=== PATIENT | female | born 1995 | race Caucasian/White ===

== ENCOUNTER 2018-06-06 14:59 | Inpatient (IN) | payer OTHER ==
[~2018-06-06] VITALS: Ht 165.1 cm; Wt 52.6 kg
--- NOTE | 2018-06-06 16:40 | NUR ---
pre-assessment note: pt was seen in intake office, pt is severely intoxicated, pt verbalized she used prior to admitting, she is able to provide accurate information. V/S WNL. explained protocols and procedures and pt verbalized understanding.
[2018-06-06] MEDS ORDERED: QUET200T PO (17:33)
[2018-06-06] MEDS ORDERED: CLON0.1T PO (17:34)
[2018-06-06] MEDS ORDERED: INSU100V (17:35)
[2018-06-06] MEDS ORDERED: GABA800T2 PO (17:38)
[2018-06-06] MEDS ORDERED: ESCI20TA PO (17:41)
[2018-06-06 17:48] LABS: *URINE HCG, QUAL NEGATIVE (NEGATIVE)
[2018-06-06 17:53] LABS: *AMPHETAMINE, URINE NEGATIVE (NEGATIVE); *BARBITURATE, URINE NEGATIVE (NEGATIVE); *CANNABINOID, URINE NEGATIVE (NEGATIVE); *COCCAINE, URINE NEGATIVE (NEGATIVE); *OPIATE, URINE POSITIVE (NEGATIVE); *PHENCYCLIDINE SCREEN,URINE NEGATIVE (NEGATIVE)
[2018-06-06] MEDS ORDERED: ONDANSETRON ODT 4 MG TAB.RAPDIS SL PRN (18:00)
[2018-06-06] MEDS ORDERED: LORAZEPAM 2 MG/1 ML VIAL IM PRN (18:00)
[2018-06-06] MEDS ORDERED: ACETAMINOPHEN 325 MG TABLET PO PRN (18:00)
[2018-06-06] MEDS ORDERED: diphenhydrAMINE 50 MG CAPSULE PO PRN (18:00)
[2018-06-06] MEDS ORDERED: MAG HYDROX/AL HYDROX/SIMETH 30 ML LIQUID UDC PO PRN (18:00)
[2018-06-06] MEDS ORDERED: THIAMINE HCL 200 MG/2 ML VIAL IM ONE (18:00)
[2018-06-06] MEDS ORDERED: LOPERAMIDE HCL 2 MG CAPSULE PO PRN ×2 (18:00)
[2018-06-06] MEDS ORDERED: CLONIDINE HCL 0.1 MG TABLET PO PRN ×2 (18:00→18:30)
[2018-06-06] MEDS ORDERED: ONDANSETRON 4 MG/2 ML VIAL IM PRN (18:00)
[2018-06-06] MEDS ORDERED: DIAZEPAM 5 MG TABLET PO PRN (18:00)
[2018-06-06] MEDS ORDERED: DIAZEPAM 10 MG TABLET PO PRN ×2 (18:00)
[2018-06-06] MEDS ORDERED: IBUPROFEN 400 MG TABLET PO PRN (18:00)
[2018-06-06] MEDS ORDERED: BUPRENORPHINE HCL 2 MG TAB.SUBL SL PRN (18:00)
[2018-06-06] MEDS ORDERED: DICYCLOMINE HCL 20 MG TABLET PO PRN (18:00)
[2018-06-06] MEDS ORDERED: MAGNESIUM HYDROXIDE 30 ML LIQUID UDC PO PRN (18:00)
[2018-06-06] MEDS ORDERED: HYDROXYZINE PAMOATE 25 MG CAPSULE PO PRN (18:00)
[2018-06-06] MEDS ORDERED: Medication Not On Formulary EA (Gabapentin 800 MG) PO PRN (18:30)
[2018-06-06] MEDS ORDERED: PATIENT MAY USE OWN MED- MD OK PO SCH (18:30)
[2018-06-06] MEDS ORDERED: GABAPENTIN 400 MG CAPSULE PO PRN (18:45)
[2018-06-06] MEDS ORDERED: PATIENT MAY USE OWN MED- MD OK SQ SCH (18:45)
--- NOTE | 2018-06-06 18:58 | NUR ---
ADMSSION NOTE Pt is a 22yr old female, AA&Ox4. Pt is presenting herself to [facility] for medically supervised withdrawal from Xanax and Heroin. Pt is observed intoxicated, nodding in and out and unable to keep her eyes open. Pt states her last use was today 06/06/18 at 1430, she states of using Xanax 3mg PO and smoked 0.3g of heroin. Pt is also observed with delayed speech and delayed thought process. Pt arrived on the unit at 1713. Body check was completed. Pt was noted with self inflicted scars on right upper thigh and has a personal Insulin pump on right lower quadrant. Skin is intact, warm and dry to touch. Respirations are even and unlabored. Lung sounds are clear bilaterally. Pt reports of medical history of Diabetes type 1, Hepatitis C, Anxiety, Depression, and right ear infection. Pt states of having suicide thought 2 weeks ago but denies any plan or attempt. Pt denies any Hx of seizures or 5150. Pt does states of overdosing 5 times in the past; last over dose was 1-2 years ago. Pt states she did received medical care. Pt brought home medication including Gabapentin and Clonidine for anxiety, Seroquel for sleep and Lexapro for depression. Pt denies any PCP or Psychiatrist. Substance History is as follows: 1. Xanax Pt states of first using Xanax intermittently at the age of 14-15 years old but became a daily basis at the age of [age] years old. Pt was verbalizing she was in sober living and was going to [facility] for the past 1.5 months but relapsed on Wednesday06/01/18. Pt states on taking 2mg PO daily for 6 days. Last use was today 06/06/18, pt states of taking 3mg PO at 1430. 2. Heroin Pt states of first using heroin at the age of [age] years old and was using IV daily. Pt states she was sober for 1.5months but relapsed on Wednesday06/01/18. Pt states of smoking 0.3g of heroin on Wednesday06/01/18, Wednesday06/04/18, Wednesday06/05/18 and last use was today 06/06/18 at 1430, pt verbalizes of smoking 0.3g. Pt states she has been attempting several times to get sober, including going into IOP, residential, sober living and inpatient rehabilitation 20x but has been unsuccessful due to her emotions. Pt verbalized, I was depressed and bored so I would use. Pt states she decided to come into [facility] because she wants to attend a custodial treatment. Pt verbalized, I got caught using in sober living but I dont want to go back there, I want to go into a custodial treatment, like 1 year long. I think it will help me. Pt has sober friend and family supporting her to maintain her sobriety. Report to Dr. Morgan in regards to new patient. Pt was placed on Valium PRN and Subutex PRN for s/s of w/d. Pt is also to be on Accu check AC and HS. Endorsed to night shift manager nurse to continue to f/u.
[2018-06-06] MEDS ORDERED: INSULIN PUMP SQ PRN (19:30)
--- NOTE | 2018-06-06 19:30 | NUR ---
START OF SHIFT Received patient awake, alert, and oriented x4. Per endorsement, patient is a 22 year old female admitted with a past medical history of DM type 1, Hep C, anxiety, depression, and a right ear infection. She is on PRN medications Valium and Subutex. She was admitted for detox from Xanax and heroin. Upon assessment, patient is lethargic, distracted, and has trouble focusing. Patient is also noted to be easily agitated. Patient is with an insulin pump set up with a sliding scale and basal rate. Information regarding pump relayed to pharmacy. MRSA swab was done. Will continue to monitor.
[2018-06-06 20:00] VITALS: BP 105/77
[2018-06-06] MEDS: BLOOD SUGAR DIAGNOSTIC 1 EACH STRIP VI SCH (20:27)
--- NOTE | 2018-06-06 20:28 | NUR ---
INSULIN ADMINISTRATION Blood sugar checked at 161 mg/dL. Based on patient's sliding scale, insulin pump administered 0.7 units. Will continue to monitor.
[2018-06-06] MEDS ORDERED: QUETIAPINE FUMARATE 200 MG TABLET PO ONE (21:00)
[2018-06-06 22:40] LABS: BASOPHILS % (AUTO) 0.8 % (0.0-2.0); EOSINOPHILS # (AUTO) 0.2 K/uL (0.0-0.7); EOSINOPHILS % (AUTO) 2.8 % (0.0-7.0); HEMOGLOBIN 13.3 g/dL (10.9-14.3); LYMPHOCYTES # (AUTO) 1.9 K/uL (20.0-40.0); LYMPHOCYTES % (AUTO) 33.2 % (20.5-51.5); MEAN CORPUSCULAR HEMOGLOBIN 32.5 uug (24.7-32.8); MEAN CORPUSCULAR HGB CONC 35 g/dL (32.3-35.6); MEAN CORPUSCULAR VOLUME 92.9 fL (75.5-95.3); MONOCYTES # (AUTO) 0.6 K/uL (2.0-10.0); MONOCYTES % (AUTO) 11.2 % (0.0-11.0); NEUTROPHILS # (AUTO) 2.9 K/uL (1.8-8.9); PLATELET COUNT (AUTO) 219 K/uL (179-408); RED BLOOD CELL COUNT(AUTO) 4.09 MIL/uL (3.63-4.92); WHITE BLOOD COUNT (AUTO) 5.7 K/uL (3.8-11.8)
[2018-06-06 22:54] LABS: ALANINE AMINOTRANSFERASE 15 U/L (14-59); ALKALINE PHOSPHATASE 66 U/L (50-136); ASPARTATE AMINOTRANSFERASE 8 U/L (15-37); BILIRUBIN,TOTAL 0.1 mg/dL (0.2-1.0); CARBON DIOXIDE 31 mmol/L (21-32); CHLORIDE 100 mmol/L (98-107); CREATININE 0.6 mg/dL (0.6-1.3); GLUCOSE 216 mg/dL (74-106); MAGNESIUM 1.7 mg/dL (1.8-2.4); POTASSIUM 3.3 mmol/L (3.5-5.1); TOTAL PROTEIN, SERUM 7.1 g/dL (6.4-8.2); UREA NITROGEN, BLOOD 9 mg/dL (7-18)
[2018-06-06 23:03] LABS: THYROID STIMULATING HORMONE 0.448 mIU/mL (0.358-3.740)
[2018-06-06 23:05] LABS: ETHANOL < 3 MG/DL (0-0)
[2018-06-07] VITALS: BP 112/83
--- NOTE | 2018-06-07 | NUR ---
COWS=8, CIWA=8 Patient continues to be easily agitated, verbalized profanity at times, with intermittent anxiety and nausea.
--- NOTE | 2018-06-07 04:00 | NUR ---
COWS=8, CIWA=8 Patient continues to be easily agitated, exhibiting nervousness, and with intermittent anxiety and nausea. Will continue to monitor.
--- NOTE | 2018-06-07 07:05 | NUR ---
END OF SHIFT Patient is noted to be lying in bed with eyes closed and even, unlabored respirations. Pt is a 22 year old female with a past medical history of Type 1 DM, Hepatitis C, anxiety, depression, and a right ear infection. She has ordered for her PRN medications Valium and Subutex and was admitted for detox from Xanax and heroin. Patient still shows difficulty concentrating, is lethargic, and drowsy. Last COWS is 8 and last CIWA score is 8 taken at 0400. No S/S of pain or distress noted at this time. Patient slept for 9 hours. Endorsed to oncoming AM nurse.
--- NOTE | 2018-06-07 07:30 | NUR ---
START OF SHIFT Pt is a 22 yr old female, A&Ox4. Pt was admitted on 06/06/18 for Benzo/Opiate withdrawal and is on PRN Valium and PRN Subutex for s.s of w/d. Received report from maintenance supervisor 2nd shift nurse. No PRN's were given during the night. Pt slept for 9 hrs. Last COWS score was 8 and CIWA score was 8 during the night. Pt is currently in bed resting with respirations even and unlabored. Skin is intact, warm and dry to touch. Pt is on Accu check ACHS. Last BS was 161 at HS. Safety precautions observed. Call light is within reach. Will continue to monitor.
[2018-06-07 08:00] VITALS: BP 103/55
[2018-06-07] MEDS: BLOOD SUGAR DIAGNOSTIC 1 EACH STRIP VI SCH ×4 (08:27→20:51)
[2018-06-07] MEDS: MULTIVITAMINS,THERAPEUTIC TABLET PO SCH (08:43)
[2018-06-07] MEDS: FOLIC ACID 1 MG TABLET PO SCH (08:43)
[2018-06-07] MEDS: THIAMINE HCL 100 MG TABLET PO SCH (08:43)
--- NOTE | 2018-06-07 08:44 | NUR ---
MEDICATION REFUSE Pt refused to have TB administered. Pt states she had one done last week and had a negative results. Pt denies any episodes of cough or upper respiratory infection.
--- NOTE | 2018-06-07 08:45 | NUR ---
COWS AND CIWA ASSESSMENT Pt is c/o restlessness and anxiety. Pt is noted with stuffy nose. Skin is warm and dry to touch. COWS score was 6 and CIWA was 5. Encouraged increase fluid intake. Will continue to monitor.
[2018-06-07] MEDS ORDERED: POTASSIUM CHLORIDE 20 MEQ TAB.PRT.SR PO ONE (09:00)
[2018-06-07] MEDS ORDERED: TUBERCULIN,PURIF.PROT.DERIV. 5 TU/0.1 ML TEST ID ONE (09:00)
[2018-06-07] MEDS ORDERED: MAGNESIUM OXIDE 400 MG TABLET PO ONE (09:00)
[2018-06-07] MEDS: GABAPENTIN 400 MG CAPSULE PO SCH ×3 (09:38→17:56)
--- NOTE | 2018-06-07 09:45 | NUR ---
NSG NOTES Pt states of administering 2.1units of insulin after eating breakfast.
[2018-06-07] MEDS: ESCITALOPRAM OXALATE 10 MG TABLET PO SCH (10:34)
[2018-06-07 12:00] VITALS: BP 109/78
--- NOTE | 2018-06-07 12:00 | NUR ---
COWS AND CIWA ASSESSMENT Pt is c/o anxiety, agitation and chills. Pt is noted with flat affect and observed yawning more than once. COWS score was 7 and CIWA score was 6.
--- NOTE | 2018-06-07 15:53 | NUR ---
therapist prompted client to attend group therapy.
[2018-06-07 16:30] VITALS: BP 105/63
--- NOTE | 2018-06-07 18:13 | NUR ---
NSG NOTE Pt states she self administered 6 units of insulin after eating dinner.
--- NOTE | 2018-06-07 19:10 | NUR ---
END OF SHIFT Pt is a 22 yr old female, AA&Ox4. Pt was admitted on 06/06/18 for Benzo/Opiate withdrawal and is on PRNs for s/s of w/d. Pt has been cooperative with medication regimen and plan of care. Pt was encouraged to attend group therapy. Pt was c/o anxiety, sweats and chills throughout the day. Pt was observed with stuffy nose and yawning more than once. Skin is intact, warm and dry to touch. No PRNs were given during the day. Last COWS score was 7 and CIWA score was 6 at 1600. Last BS was 154 prior to dinner and administered 6 units of insulin after dinner. Pt was encouraged increase fluid intake for hydration. Safety precautions observed. Endorsed to turbo electric operator nurse to continue with care.
--- NOTE | 2018-06-07 19:30 | NUR ---
START OF SHIFT Received patient awake, alert, and oriented x4. Patient was lying in bed watching television. Patient appeared disheveled, lethargic, and had difficulty focusing. Per endorsement, client is a 22 year old female admitted for medically supervised detox of benzos and heroin. She also has secondary diagnoses of Type 1 diabetes, hepatitis C, generalized anxiety disorder, depression, and right ear infection. She has accuchecks ACHS and a personal insulin pump. Will continue to monitor.
[2018-06-07 20:00] VITALS: BP 119/73
--- NOTE | 2018-06-07 20:00 | NUR ---
COWS=7, CIWA=6 Patient continue to be restless, nervous, and easily agitated with episodes of anxiety and nausea. Will continue to monitor.
[2018-06-07] MEDS ORDERED: QUETIAPINE FUMARATE 200 MG TABLET PO SCH (21:00)
--- NOTE | 2018-06-08 | NUR ---
COWS AND VITALS DEFERRED Patient noted lying in bed with eyes closed and even, unlabored respirations. Bed in a low, locked position with bilateral side rails up. Vital signs refused and COWS assessment deferred. Will continue to monitor.
[2018-06-08 06:07] LABS: HEPATITIS B SURFACE AG Negative (Negative)
--- NOTE | 2018-06-08 07:00 | NUR ---
END OF SHIFT Patient is noted lying in bed with eyes closed and respirations even and unlabored. No complaints of distress or pain raised throughout the shift. Patient slept for about 7 hours and 30 minutes. Patient noted to be pleasant in demeanor, but with difficulty focusing during conversations. Educated and encouraged patient to adhere more strictly to her diabetic dietary restrictions. Last COWS score is 7 and last CIWA score is 6 taken at 2000. Endorsed to oncoming AM shift nurse.
[2018-06-08 07:45] LABS: CREATININE 0.6 mg/dL (0.6-1.3); MAGNESIUM 1.7 mg/dL (1.8-2.4); POTASSIUM 4.2 mmol/L (3.5-5.1)
[2018-06-08 08:00] VITALS: BP 119/83
--- NOTE | 2018-06-08 08:00 | NUR ---
START OF SHIFT Pt is a 22 yr old female, AA&Ox4. Pt was admitted on 06/06/18 for Benzo/Opiate withdrawal and is on PRN's for s/s of w/d. Received report from shift engineer nurse. No PRN's were given during the night. Pt slept for 8 hrs. Last COWS score was 7 and CIWA score was 6 during the night. Pt is to be discharged today. Discharge location is pending. Pt is c/o anxiety but states she is able to cope wt anxiety level. Skin is intact, warm and dry to touch. Pt is on Accu check ACHS. Last BS was 153 at HS. Safety precautions observed. Call light is within reach. Will continue to monitor.
[2018-06-08] MEDS: BLOOD SUGAR DIAGNOSTIC 1 EACH STRIP VI SCH ×2 (08:13→12:15)
[2018-06-08] MEDS: ESCITALOPRAM OXALATE 10 MG TABLET PO SCH (09:12)
[2018-06-08] MEDS: FOLIC ACID 1 MG TABLET PO SCH (09:12)
[2018-06-08] MEDS: THIAMINE HCL 100 MG TABLET PO SCH (09:12)
[2018-06-08] MEDS: GABAPENTIN 400 MG CAPSULE PO SCH ×2 (09:12→12:32)
[2018-06-08] MEDS: MULTIVITAMINS,THERAPEUTIC TABLET PO SCH (09:12)
[2018-06-08 12:00] VITALS: BP 115/78
--- NOTE | 2018-06-08 13:15 | NUR ---
DISCHARGE NOTE Pt is a 22 yr old male, AA&Ox4. Pt was admitted on 06/06/18 for Opiate/Benzo withdrawal and was on PRN's for s/s w/d. Pt has been cooperative with medication regimen and plan of care. Pt was c/o anxiety due to discharge but is able to cope with anxiety level. Pt was educated on discharged summary and prescriptions. Pt was able to verbalize understanding. Pt was discharged off the unit at 1311 in stable condition. Pt was discharged to [facility]. Pt left with all belongings, valuables and home medications.
== END 2018-06-08 13:11 | disposition other institution (70) | DRG 895 ==
LOC: EDSEX 16:14 → EDBD 16:14 → SRC 16:14
PROVIDERS: ADMIT Family Medicine Addiction Medicine; ATTEND Family Medicine Addiction Medicine
PROC: HZ2ZZZZ Detoxification Services for Substance Abuse Treatment (ICD-10-PCS; principal; 2018-06-06)
PROC: HZ41ZZZ Group Counseling for Substance Abuse Treatment, Behavioral (ICD-10-PCS; 2018-06-07)
DX: F11.23 Opioid dependence with withdrawal (principal); F31.81 Bipolar II disorder; F13.230 Sedative, hypnotic or anxiolytic dependence with withdrawal, uncomplicated; F41.9 Anxiety disorder, unspecified; Z91.5 Personal history of self-harm; F17.210 Nicotine dependence, cigarettes, uncomplicated; Z79.899 Other long term (current) drug therapy; E10.9 Type 1 diabetes mellitus without complications; Z96.41 Presence of insulin pump (external) (internal); B19.20 Unspecified viral hepatitis C without hepatic coma
CPT/HCPCS: 36415; 70030-TC; 80307; 80346; 80361; 83735; 84443; 84703; 85025; 86592; 86705; 86803; 87340; 87806; 93005; G0480